=== PATIENT | male | born 1990 | race Hispanic/Latino ===

== ENCOUNTER 2019-02-18 12:06 | Emergency (ER) | payer SELFPAY ==
[2019-02-18] MEDS ORDERED: ISOVUE-370 76%-LOCM 1 ML ONE (12:14)
[2019-02-18 12:41] LABS: Bilirubin Small (Negative); Blood, Urine Large (Negative); Glucose, Urine (Dipstick) Negative (Negative); Leukocyte Negative (Negative); Nitrite Negative (Negative); Protein, Urine (Dipstick) Trace mg/dL (Neg-Trace)
[2019-02-18 12:52] LABS: #Eosinphils 0.2 thou/uL (0.0-0.7); #Lymphocytes 1.9 thou/uL (1.20-3.40); #Monocytes 0.7 thou/uL (0.11-0.59); %Basophils 0.4 % (0.0-1.0); %Eosinophils 1.2 % (0.0-10.0); %Lymphocytes 13.8 % (21.0-51.0); %Monocytes 5.1 % (0.0-10.0); %Neutrophils 79.6 % (42.0-75.0); Hemoglobin 14.5 g/dL (14.0-18.0); Mean Corpuscular HGB CONC 32.4 g/dL (32.0-36.0); Mean Corpuscular Hemoglobin 28.9 pg (27.0-31.0); Mean Corpuscular Volume 89.3 fL (78.0-98.0); Mean Platelet Volume 7.7 fL (7.4-10.4); Platelet Count 220 thou/uL (130-400); RBC Distribution Width 12.2 % (11.5-14.5); Red Blood Cell (RBC) Count 5.01 mill/uL (4.70-6.10); White Blood Cell (WBC) Count 13.8 thou/uL (4.8-10.8)
[2019-02-18 12:54] LABS: Clarity Hazy (Clear)
[2019-02-18 12:55] LABS: Bacteria/HPF 2+ HPF (None Seen); RBC/HPF Greater than 50 HPF (0-3); Squamous Epithelial 0-3 HPF (0-3); WBC/HPF 0-3 HPF (0-3)
[2019-02-18 13:14] LABS: ALT (SGPT) 14 U/L (8-55); AST (SGOT) 19 U/L (5-34); Albumin 4.6 g/dL (3.5-5.0); Alkaline Phosphatase 79 U/L (40-110); Anion Gap 13 mmol/L (10-20); BUN (Urea Nitrogen) 15 mg/dL (8.9-20.6); Calc. Creatinine Clearance 0 mL/min (70-130); Calcium 9.4 mg/dL (7.8-10.44); Carbon Dioxide 23 mmol/L (22-29); Chloride 107 mmol/L (98-107); Estimated GFR-MDRD 85; Globulin 2.6 g/dL (2.4-3.5); Glucose 109 mg/dL (70-105); Lipase 39 U/L (8-78); Potassium 3.8 mmol/L (3.5-5.1); Protein, Total 7.2 g/dL (6.0-8.3); Sodium 139 mmol/L (136-145)
[2019-02-18] MEDS ORDERED: Morphine 4 MG/ML VIAL ONE (13:22)
[2019-02-18] MEDS ORDERED: Ondansetron PF 4 MG/2 ML Vial ONE (13:22)
[2019-02-18] MEDS ORDERED: Ketorolac Tromethamine 30 MG/ML VIAL ONE (13:58)
--- NOTE | 2019-02-18 14:55 | CT ---
CT OF THE ABDOMEN AND PELVIS: Date: 02/18/19 COMPARISON: None. HISTORY: L Hematuria and abdominal pain. TECHNIQUE: Axial CT imaging is obtained at 5 mm intervals from lung bases through pubic symphysis with IV contra st. Coronal and sagittal reformatted imaging obtained. FINDINGS: The visualized lung bases are unremarkable. No free intraperitoneal air or fluid is appreciated. The liver, gallbladder, and spleen appear grossl y unremarkable. The pancreas and bilateral adrenal glands are unremarkable, as is the left kidney. There is hydroneph rosis and hydroureter on the right. There is an obstructing stone within the distal right ureter on a xial image 70 measuring approximately 3.0 mm. Assessment of the bowel is limited without oral contrast media. The colon is decompressed. Appendix i s grossly unremarkable. No lymphadenopathy or evidence of bowel obstruction. Vascular structures appe ar patent. Review of osseous structures demonstrate no worrisome lytic or blastic bone lesions. IMPRESSION: Obstructive uropathy on the right secondary to a distal obstructing right ureteral stone measuring 3- 4 mm. POS: [facility]
== END 2019-02-18 14:56 | disposition home or self-care (01) ==
LOC: ERS 12:06
DX: N13.2 Hydronephrosis with renal and ureteral calculous obstruction (principal); F17.210 Nicotine dependence, cigarettes, uncomplicated
CPT/HCPCS: 36415; 74177; 80053; 81003; 81015; 82550; 83690; 85025; 87086; 96361; 96374; 96375; J1885; J2270; J2405; Q9966